=== PATIENT | female | born 1995 | race Caucasian/White ===

== ENCOUNTER → 2022-08-16 15:31 | Outpatient (BNVA) | payer OTHER, SELFPAY ==
--- NOTE | 2023-01-22 14:51 | W.PM.OPN ---
Operative Note Operative Note Date of Service: 01/02/23 Narrative: Patient was evaluated by Dr. Rogers for chronic lower back pain and radiculopathy with a foot drop and scheduled for ALIF L5-S1. I met with the patient pre-operatively and discussed the access part of the procedure and risks an the patient agreed to proceed. She was brought to the operating room and general anaesthesia was administered without incident. Abdomen was prepped sterily and draped. Timeout was done. Horizontal 6cm suprapubic incision was done . Rectus sheaths were opened horizontally and left rectus muscle was mobilized. Left inferior epigastric vessels were protected. Round ligament was transected between hemoclips ant retroperitoneal plane was developed , Left ureter was visualized and protected. Bookwalter retractor was placed with narrow blades. Dissection was carried at the medial aspect of the the left common iliac vein which was mobilized from the spine and middle sacral vessels were divided, Bipolar electrocautery was used to completely free L5-S1 disc anteriorly. Dissection was done close to the surface of the spine to prevent nerve injury. Midline was marked with X-ray imaging. Doctor Rogers then proceeded with diskectomy and cage fusion.Hemostasis was checked and was excellent. Gelfoam sponge was placed over the disc space. Ureter was intact and there was a good iliac pulse. Incision was injected with diluted Lidocaine/Marcaine mixture and closed by layers using O-Maxone on the fascia and absorbable subcutaneous and subcuticular closure. Exofin glue and steristrip was applied. EBL: less then 10ml Complication:none
== END ==
PROVIDERS: PCP Physician Assistant Medical; Visit Provider Neurological Surgery
DX: M47.27 Other spondylosis with radiculopathy, lumbosacral region (principal); Z79.891 Long term (current) use of opiate analgesic; Z79.899 Other long term (current) drug therapy
CPT/HCPCS: 99202

== ENCOUNTER → 2023-01-02 05:41 | Outpatient (BNV) | payer OTHER, SELFPAY | PROVIDERS: PCP Physician Assistant Medical; Visit Provider Neurological Surgery | DX: M47.27 Other spondylosis with radiculopathy, lumbosacral region (principal); Z48.89 Encounter for other specified surgical aftercare | CPT/HCPCS: 20930; 22558; 22845; 22853; 99024; 99499; G0180 ==

== ENCOUNTER 2023-01-02 09:54 | Inpatient (IN) | payer OTHER, SELFPAY ==
--- NOTE | 2022-12-20 | ECG_ITS ---
Test Reason : PRE-OP Blood Pressure : / mmHG Vent. Rate : 062 BPM Atrial Rate : 062 BPM P-R Int : 140 ms QRS Dur : 080 ms QT Int : 452 ms P-R-T Axes : 046 054 027 degrees QTc Int : 458 ms Normal sinus rhythm with sinus arrhythmia Cannot rule out Anterior infarct , age undetermined Abnormal ECG No previous ECGs available Referred By: Gabi Huertas Electronically Signed By:SALENA FERGUSON
[2022-12-20 12:25] VITALS: BP 102/57; PULSE 75; RESP 20; O2SAT 100; BMI 35.4
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
[2023-01-02] VITALS (18 sets, daily range): BP systolic 90–120; BP diastolic 44–74; PULSE 74–106; RESP 16–24; TEMP 36.1–36.8; O2SAT 96–99
--- NOTE | ~2023-01-02 | FL_ITS ---
EXAMINATION: XR FLUOROSCOPY WITH IMAGES CLINICAL INFORMATION: L5-S1 anterior lumbar interbody fusion. COMPARISON: None available. TECHNIQUE: Fluoroscopy Supervised By: Dr. Xavier Rogers. Fluoroscopy Time: 0.4 minutes. Cumulative Dose: 33.6 mGy. DAP: 3.58 Gycm2. Images: 2. FINDINGS: AP and lateral view demonstrates ACDF hardware at the L5-S1 level FL/FL guidance in OR IMPRESSION: Fluoroscopy guidance for ACDF at L5-S1
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
--- OUTSIDE RECORDS SUMMARY | 2023-01-02 05:47 | XMS_ITS | Continuity of Care Document ---
Author Name Unknown Organization [facility] Address [address] [place] [id number]- Care Team Providers Care Dowel Setting Machine Operator Name Role Phone Mary Melvin DO Primary Care Physician [phone] [place] [facility] [place]17[place] - 09/16/[address] [id number] Allergies, Adverse Reactions, Alerts Substance Reaction Severity Status predniSONE facial swelling Active Immunizations Given and Recorded Vaccine Date Status Refusal Reason [id number] 12y+ bivalent booster vax 07/28/22 Given SARS-CoV-2 mRNA ([id number]) vax 08/09/21 Given tetanus/diphtheria/pertussis, acel(Tdap) 06/08/21 Given [...] 12:02:00 EDT, Height, 82.9, kg, 02/09/22 7:58:00 Dr.. MEAGHAN. Start Date: 09/08/22 Status: Ordered clotrimazole 1% topical cream See Instructions, Topically 2 times a day to affected area of skin, # 60 Gm, 0 Refills, Maintenance, 09/07/22 17:39:00 EDT, [facility]/pharmacy #[id number], Partial fill upon patient request if the prescription is for a schedule II opioid drug., Topically 2 times... Start Date: 09/07/22 Status: Ordered Commode Commode, See Instructions, # 1 each, Refills 0, Tot. Refills 0, Maintenance, Dx: M54.30 Sciatica duration: assisted, 08/14/22 13:56:00 EDT, Supply Start Date: 08/14/22 Status: Ordered cyclobenzaprine 10 mg oral tablet 10 mg, 1, tablet, By Mouth, 3 times a day, PRN, for 14 days, # 42 tablet, Refills 0, Tot. Refills 0, Acute 09/21/22 15:34:00 EDT, for spasm, 09/07/22 15:34:00 EDT, Route to Pharmacy Electronically, [facility]/pharmacy #[id number], Partial fill upon patient request... Start Date: 09/07/22 Stop Date: 09/21/22 Status: Ordered gabapentin 100 mg oral capsule 100 mg, 1, capsule, By Mouth, Daily at bedtime, # 30 capsule, Refills 2, Tot. Refills 2, Maintenance, 06/20/22 9:46:00 EDT, Route to Pharmacy Electronically, [id number], dose decrease to 100mg qhs 06/20/22, 158, cm, 06/20/22 9:07:00 EDT, Height... Start Date: 06/20/22 Status: Ordered hydrocortisone 2.5% topical cream 1 application, Rectally, 2 times a day, PRN hemorrhoids, # 30 Gm, 11 Refills, Maintenance, 09/09/2315:53:00 EDT, Cream, [facility]/pharmacy #[id number], Partial fill upon patient request if the prescription is for a schedule II opioid drug., 1 application Rectall... Start Date: 09/08/22 Status: Ordered Lidoderm 5% film See Instructions, Topically Daily for pain remove patches after 12 hours, # 30 patch, 0 Refills, Maintenance, 08/10/22 17:46:00 EDT, [facility]/pharmacy #[id number], Partial fill upon patient request if the prescription is for a schedule II opioid drug., Topicall... Start Date: 08/10/22 Status: Ordered LSO for lower back pain LSO for lower back pain, See Instructions, # 1 each, Refills 0, Tot. Refills 0, Maintenance, pleasesize pt for LSO for lower back pain Fax to [facility]. [id number], 05/04/21 15:19:00 EST, Compound Start Date: 05/04/21 Status: Ordered meloxicam 15 mg oral tablet 1 tablet, By Mouth, Daily, # 30 tablet, 0 Refills, Maintenance, 08/10/22 9:19:00 EDT, [facility] STORE [id number], 158, cm, 08/04/22 14:26:00 EDT, Height, 82.9, kg, 02/09/22 7:58:00 EST, Dry Weight Start Date: 08/10/22 Status: Ordered ProAir HFA 90 mcg/inh inhalation aerosol with adapter 2, puffs, Inhalation, Every 4 hours, PRN, # 1 each, Refills 0, Tot. Refills 0, Maintenance, 03/11/18 16:52:13 EST, Aerosol, Route to Pharmacy Electronically, [id number], [facility]/pharmacy #[id number] Start Date: 03/11/18 Status: Ordered Seroquel By Mouth, Daily at [...] 1 Refills, Soft Stop, 02/13/22 10:40:00 EST, [id number], Partial fill upon patient request [...] EDT, Supply Start Date: 07/20/22 Status: Ordered walking cane walking cane, See [...] of autism (son) Confirmed Active *Debbie Munoz, Turret Lathe Operator, [facility] [phone] Confirmed Active GERD (gastroesophageal reflux disease) Confirmed [...] Team Personnel Name: Mary Melvin DO Position: S Resident Member Role: PCP Address: Address: [address] [facility] [place] [address]- Care Team Related Persons Name: FELICIA MOREAU Address: [address] [place] [address] Name: JENNIE YEE Address: home [address] [place] [address] [place] [address] Name: JON EDMONDS Address: [address] Address: [address] [place] [address] [place]
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
--- OUTSIDE RECORDS SUMMARY | 2023-01-02 05:47 | XMS_ITS | Continuity of Care Document ---
Author Name Unknown Organization [facility] Address [address] [place] [address]- Care Team Providers Care Fish And Wildlife Technician Name Role Phone Mary Melvin DO Primary Care Physician [facility] Date(s): 11/02/22 - 12/02/22 [facility] [address] [place] [address] Attending Physician: Giuliana Sommer Admitting Physician: AdmGiuliana arnold Referring Physician: Admtr, Ar8 Allergies, Adverse Reactions, Alerts Substance Reaction Severity Status predniSONE facial swelling Active Immunizations Given and Recorded Vaccine Date Status Refusal Reason [id number] 12y+ bivalent booster vax 07/28/22 Given SARS-CoV-2 mRNA (tbnnpbs-lgke-sygzj) vax 08/09/21 Given tetanus/diphtheria/pertussis, acel(Tdap) 06/08/21 Given [...] 12:02:00 EDT, Height, 82.9, kg, 02/09/22 7:58:00 EST, DrAyden. Start Date: 09/08/22 Status: Ordered Aspirin Low Dose 81 mg oral delayed release tablet See Instructions, TAKE 2 TABLETS BY MOUTH EVERY DAY TO HELP DECREASE PRE- ECLAMPSIA, # 30 tablet, 5 Refills, Maintenance, 11/07/22 18:27:00 EDT, [facility], 158, cm, 11/02/22 18:25:00 EDT, Height, 82.9, kg, 02/09/22 7:58:00 EST, Dry Weight Start Date: 11/07/22 Status: Ordered clotrimazole 1% topical cream See Instructions, Topically 2 times a day to affected area of skin, # 60 Gm, 3 Refills, Maintenance, 11/09/22 14:33:00 EDT, [facility]/pharmacy #[id number], Partial fill upon patient request if the prescription is for a schedule II opioid drug., Topically 2 times... Start Date: 11/09/22 Status: Ordered Commode Commode, See Instructions, # 1 each, Refills 0, Tot. Refills 0, Maintenance, Dx: M54.30 Sciatica duration: shelter, 08/14/22 13:56:00 EDT, Supply Start Date: 08/14/22 Status: Ordered gabapentin 100 mg oral capsule 100 mg, 1, capsule, By Mouth, Daily at bedtime, # 30 capsule, Refills 4, Tot. Refills 4, Maintenance, 11/09/22 14:33:00 EDT, Route to Pharmacy Electronically, [facility]/pharmacy #[id number], dose decrease to 100mg qhs 06/20/22, 158, cm, 11/02/22 18:25:00 EDT, [facility]... Start Date: 11/09/22 Status: Ordered hydrocortisone 2.5% topical cream 1 application, Rectally, 2 times a day, PRN hemorrhoids, # 30 Gm, 11 Refills, Maintenance, 09/09/2315:53:00 EDT, Cream, [facility]/pharmacy #[id number], Partial fill upon patient request if the prescription is for a schedule II opioid drug., 1 application Rectall... Start Date: 09/08/22 Status: Ordered Lidoderm 5% film See Instructions, Topically Daily for pain remove patches after 12 hours, # 30 patch, 0 Refills, Maintenance, 11/08/22 16:40:00 EDT, [facility]/pharmacy #[id number], Partial fill upon patient request if the prescription is for a schedule II opioid drug., Topicall... Start Date: 11/08/22 Status: Ordered LSO for lower back pain LSO for lower back pain, See Instructions, # 1 each, Refills 0, Tot. Refills 0, Maintenance, pleasesize pt for LSO for lower back pain Fax to [facility]. [id number], 05/04/21 15:19:00 EST, Compound Start Date: 05/04/21 Status: Ordered meloxicam 15 mg oral tablet See Instructions, 1 tablet daily for 14 days take with food please, # 14 each, 0 Refills, Maintenance, 11/02/22 19:13:00 EDT, [facility]/pharmacy #[id number], 158, cm, 11/02/22 18:25:00 EDT, Height, 82.9, kg, 02/09/22 7:58:00 EST, Dry Weight Start Date: 11/02/22 Status: Ordered Paxlovid 150 mg-100 mg oral tablet See Instructions, Paxlovid as mirmatrelvir 150 mg x 2 days with ritonavir 100. All 3 tablets taken together twice daily for 5 days, # 30 tablet, 0 Refills, Maintenance, 11/01/22 19:02:00 EDT, [facility]/pharmacy #[id number], Partial fill upon patient request if t... Start Date: 11/01/22 Status: Ordered ProAir HFA 90 mcg/inh inhalation aerosol with adapter 2, puffs, Inhalation, Every 4 hours, PRN, # 1 each, Refills 1, Tot. Refills 1, Maintenance, 11/01/22 19:03:00 EDT, Aerosol, Route to Pharmacy Electronically, [id number], [facility]/pharmacy #[id number], 158, cm, 10/04/22 9:25:00 EDT, [...] 1 Refills, Soft Stop, 02/13/22 10:40:00 EST, [facility]/pharmacy #[id number], Partial fill upon patient request [...] each, 11 Refills, Maintenance, 09/08/22 13:03:00 EDT, [facility]/pharmacy #[id number], Partial fill upon patient request if the [...] of autism (son) Confirmed Active *Debbie Munoz, Lead Manufacturing Technician, ICP [phone] Confirmed Active GERD (gastroesophageal reflux disease) Confirmed [...] in household: No entered on: 07/20/16 Sex Hospital Consult note * Event Display: Inpatient Consult Note, Non- Authored Date: * Event Display: Inpatient Consult Note, Non- Authored Date: Patient Care team information Care Team Personnel Name: Mary Melvin DO Position: [facility] Resident Member Role: PCP Address: Address: [address] [facility] [place], [place] [address] Care Team Related Persons Name: FELICIA MOREAU Address: home [address] [place] [address] Name: JENNIE YEE Address: home [address] [place] [address] Name: JON EDMONDS Address: [address] Address: [place] [address] [place] [address]
--- OUTSIDE RECORDS SUMMARY | 2023-01-02 05:47 | XMS_ITS | Continuity of Care Document ---
Author Name Unknown Organization [facility] Address [address] [place] [address] Dr [address] [place] [address]- Care Team Providers Care Gift Officer Name Role Phone Mary Melvin DO Primary Care Physician [facility]counter [facility] Date(s): 09/22/22 - 10/22/[address] [place], [place] [address] Attending Physician: AdmGiuliana arnold Admitting Physician: AdmtrGiuliana Referring Physician: Admtr, Ar8 Allergies, Adverse Reactions, Alerts Substance Reaction Severity Status predniSONE facial swelling Active Immunizations Given and Recorded Vaccine Date Status Refusal Reason [id number] 12y+ bivalent booster vax 07/28/22 Given SARS-CoV-2 mRNA (twuwvip-fett-klwgd) vax 08/09/21 Given tetanus/diphtheria/pertussis, acel(Tdap) 06/08/21 Given [...] cm, 09/08/22 12:02:00 EDT, Height, 82.9, kg, 11/10/22 7:58:00 Dr... MEAGHAN Start Date: 09/08/22 Status: Ordered clotrimazole 1% topical cream See Instructions, Topically 2 times a day to affected area of skin, # 60 Gm, 0 Refills, Maintenance, 09/07/22 17:39:00 EDT, [facility]/pharmacy #[id number], Partial fill upon patient request if the prescription is for a schedule II opioid drug., Topically 2 times... Start Date: 09/07/22 Status: Ordered Commode Commode, See Instructions, # 1 each, Refills 0, Tot. Refills 0, Maintenance, Dx: M54.30 Sciatica duration: long term, 08/14/22 13:56:00 EDT, Supply Start Date: 08/14/22 Status: Ordered gabapentin 100 mg oral capsule 100 mg, 1, capsule, By Mouth, Daily at bedtime, # 30 capsule, Refills 2, Tot. Refills 2, Maintenance, 06/20/22 9:46:00 EDT, Route to Pharmacy Electronically, [facility]/pharmacy #[id number], dose decrease to 100mg qhs 06/20/22, 158, cm, 06/20/22 9:07:00 EDT, Height... Start Date: 06/20/22 Status: Ordered hydrocortisone 2.5% topical cream 1 application, Rectally, 2 times a day, PRN hemorrhoids, # 30 Gm, 11 Refills, Maintenance, 09/09/2315:53:00 EDT, Cream, [facility]/pharmacy #[id number], Partial fill upon patient request if the prescription is for a schedule II opioid drug., 1 application Rectall... Start Date: 09/08/22 Status: Ordered Lidoderm 5% film See Instructions, Topically Daily for pain remove patches after 12 hours, # 30 patch, 0 Refills, Maintenance, 08/10/22 17:46:00 EDT, [facility]/pharmacy #[id number], Partial fill upon patient request if the prescription is for a schedule II opioid drug., Topicall... Start Date: 08/10/22 Status: Ordered LSO for lower back pain LSO for lower back pain, See Instructions, # 1 each, Refills 0, Tot. Refills 0, Maintenance, pleasesize pt for LSO for lower back pain Fax to [facility]. [id number], 05/04/21 15:19:00 EST, Compound Start Date: 05/04/21 Status: Ordered meloxicam 15 mg oral tablet See Instructions, TAKE 1 TABLET BY MOUTH EVERY DAY, # 30 tablet, 0 Refills, Maintenance, 10/05/22 15:40:00 EDT, [facility], 158, cm, 10/04/22 9:25:00 EDT, Height, 82.9, kg, 02/09/22 7:58:00 EST,Dry Weight Start Date: 10/05/22 Status: Ordered ProAir HFA 90 mcg/inh inhalation aerosol with adapter 2, puffs, Inhalation, Every 4 hours, PRN, # 1 each, Refills 0, Tot. Refills 0, Maintenance, 03/11/18 16:52:13 EST, Aerosol, Route to Pharmacy Electronically, [id number], [facility]/pharmacy #[id number] Start Date: 03/11/18 Status: Ordered Seroquel [...] 1 Refills, Soft Stop, 02/13/22 10:40:00 EST, [facility]/pharmacy #[id number], Partial fill upon patient request [...] each, 11 Refills, Maintenance, 09/08/22 13:03:00 EDT, [facility]/pharmacy #[id number], Partial fill upon patient request if the [...] of autism (son) Confirmed Active *Debbie Munoz, Digital Performance Analyst, [facility] [phone] Confirmed Active GERD (gastroesophageal reflux disease) Confirmed [...] Role: PCP Address: Address: [address] [facility] [place] [address]- Care Team Related Persons Name: FELICIA MOREAU Address: home [address] [place] [address] Name: JENNIE YEE Address: home [address] [place] [address] [place] [address] Name: JON EDMONDS Address: [address] Address: [address] [place] [address] [place]
--- OUTSIDE RECORDS SUMMARY | 2023-01-02 05:48 | XMS_ITS | Continuity of Care Document ---
Author Name Unknown Organization [facility] Address [address] [place] [address]- Care Team Providers Care Maintenance Manager Name Role Phone Mary Melvin DO Primary Care Physician [facility] Date[facility]s): 07/21/22 - 08/20/22 [facility] [address] [place] [address] Allergies, Adverse Reactions, Alerts Substance Reaction Severity Status predniSONE facial swelling Active Immunizations Given and Recorded Vaccine Date Status Refusal Reason [id number] 12y+ bivalent booster vax 07/28/22 Given SARS-CoV-2 mRNA (xsmnzgw-umrs-qytpp) vax 08/09/21 Given tetanus/diphtheria/pertussis, acel(Tdap) 06/08/21 Given [...] Refills 0, Maintenance, Dx: M54.30 Sciatica duration: [facility], 08/14/22 13:56:00 EDT, Supply Start Date: 08/14/22 Status: Ordered gabapentin 100 mg oral capsule 100 mg, 1, capsule, By Mouth, Daily at bedtime, # 30 capsule, Refills 2, Tot. Refills 2, Maintenance, 06/20/22 9:46:00 EDT, Route to Pharmacy Electronically, [facility]/pharmacy #[id number], dose decrease to 100mg qhs 06/20/22, 158, cm, 06/20/22 9:07:00 EDT, Height... Start Date: 06/20/22 Status: Ordered Lidoderm 5% film See Instructions, Topically Daily for pain remove patches after 12 hours, # 30 patch, 0 Refills, Maintenance, 08/10/22 17:46:00 EDT, [facility]/pharmacy #[id number], Partial fill upon patient request if the prescription is for a schedule II opioid drug., Topicall... Start Date: 08/10/22 Status: Ordered LSO for lower back pain LSO for lower back pain, See Instructions, # 1 each, Refills 0, Tot. Refills 0, Maintenance, pleasesize pt for LSO for lower back pain Fax to [facility]. [id number], 05/04/21 15:19:00 EST, Compound Start Date: 05/04/21 Status: Ordered meloxicam 15 mg oral tablet 1 tablet, By Mouth, Daily, # 30 tablet, 0 Refills, Maintenance, 08/10/22 9:19:00 EDT, [facility], 158, cm, 08/04/22 14:26:00 EDT, Height, 82.9, kg, 02/09/22 7:58:00 EST, Dry Weight Start Date: 08/10/22 Status: Ordered ProAir HFA 90 mcg/inh inhalation aerosol with adapter 2, puffs, Inhalation, Every 4 hours, PRN, # 1 each, Refills 0, Tot. Refills 0, Maintenance, 03/11/18 16:52:13 EST, Aerosol, Route to Pharmacy Electronically, [id number], [facility]/pharmacy #[id number] Start Date: 03/11/18 Status: Ordered [...] 1 Refills, Soft Stop, 02/13/22 10:40:00 EST, [facility]/pharmacy #[id number], Partial fill upon patient request if theprescription [...] of autism (son) Confirmed Active *Debbie Munoz, Snapper On, [facility] [phone] Confirmed Active GERD (gastroesophageal reflux disease) Confirmed [...] S Resident Member Role: PCP Address: Address: [address] [place] [address] [place] [address]- Care Team Related Persons Name: LIZZETH FELICIA Address: [address] [place] [address] Name: JENNIE YEE Address: home [address] [place] [address] [place] [address] Name: JON EDMONDS Address: [address] Address: [place] [address] [place] [address] [place]
--- OUTSIDE RECORDS SUMMARY | 2023-01-02 05:48 | XMS_ITS | Continuity of Care Document ---
Author Name Unknown Organization [facility] Address [address] [place] [address]- Care Team Providers Care Director Learning And Development Name Role Phone Mary Melvin DO Primary Care Physician Encounter [facility] Date(s): 09/08/22 - 10/08/22 [facility] [address] [address] Attending Physician: Giuliana Sommer Admitting Physician: AdmtrGiuliana Referring Physician: Admtr, ArGerardo Allergies, Adverse Reactions, Alerts Substance Reaction Severity Status predniSONE facial swelling Active Immunizations Given and Recorded Vaccine Date Status Refusal Reason [id number] 12y+ bivalent booster vax 07/28/22 Given SARS-CoV-2 mRNA (fasnadw-uirg-qqvgn) vax 08/09/21 Given tetanus/diphtheria/pertussis, acel(Tdap) 06/08/21 Given [...] Gm, 0 Refills, Maintenance, 09/07/22 17:39:00 EDT, [facility]/pharmacy #[id number], Partial fill upon patient request if the prescription is for a schedule II opioid drug., Topically 2 times... Start Date: 09/07/22 Status: Ordered Commode Commode, See Instructions, # 1 each, Refills 0, Tot. Refills 0, Maintenance, Dx: M54.30 Sciatica duration: senior living, 08/14/22 13:56:00 EDT, Supply Start Date: 08/14/22 Status: Ordered gabapentin 100 mg oral capsule 100 mg, 1, capsule, By Mouth, Daily at bedtime, # 30 capsule, Refills 2, Tot. Refills 2, Maintenance, 06/20/22 9:46:00 EDT, Route to Pharmacy Electronically, [facility]/pharmacy #[id number], dose decrease to 100mg qhs 06/20/22, 158, cm, 06/20/22 9:07:00 EDT, Height... Start Date: 06/20/22 Status: Ordered hydrocortisone 2.5% topical cream 1 application, Rectally, 2 times a day, PRN hemorrhoids, # 30 Gm, 11 Refills, Maintenance, 09/09/2315:53:00 EDT, Cream, [facility]/pharmacy #[id number], Partial fill upon patient request if the prescription is for a schedule II opioid drug., 1 application Rectall... Start Date: 09/08/22 Status: Ordered Lidoderm 5% film See Instructions, Topically Daily for pain remove patches after 12 hours, # 30 patch, 0 Refills, Maintenance, 08/10/22 17:46:00 EDT, [facility]/pharmacy #[id number], Partial fill upon patient request if the prescription is for a schedule II opioid drug., Topicall... Start Date: 08/10/22 Status: Ordered LSO for lower back pain LSO for lower back pain, See Instructions, # 1 each, Refills 0, Tot. Refills 0, Maintenance, pleasesize pt for LSO for lower back pain Fax to [facility]. [id number], 05/04/21 15:19:00 EST, Compound Start Date: 05/04/21 Status: Ordered meloxicam 15 mg oral tablet See Instructions, TAKE 1 TABLET BY MOUTH EVERY DAY, # 30 tablet, 0 Refills, Maintenance, 10/05/22 15:40:00 EDT, [facility], 158, cm, 10/04/22 9:25:00 EDT, Height, 82.9, kg, 02/09/22 7:58:00 EST,Dry Weight Start Date: 10/05/22 Status: Ordered ProAir HFA 90 mcg/inh inhalation aerosol with adapter 2, puffs, Inhalation, Every 4 hours, PRN, # 1 each, Refills 0, Tot. Refills 0, Maintenance, 03/11/18 16:52:13 EST, Aerosol, Route to Pharmacy Electronically, [id number], [facility]/pharmacy #[id number] Start Date: 03/11/18 Status: Ordered [...] 1 Refills, Soft Stop, 02/13/22 10:40:00 EST, [facility]/pharmacy #[id number], Partial fill upon patient request [...] each, 11 Refills, Maintenance, 09/08/22 13:03:00 EDT, [facility]/pharmacy #[id number], Partial fill upon patient request if the [...] of autism (son) Confirmed Active *Debbie Munoz, Nutritional Health Coach, [facility] [phone] Confirmed Active GERD (gastroesophageal reflux disease) Confirmed [...] in household: No entered on: 07/20/16 Sex US Neck * Event Display: Ultrasound Neck Authored Date: Patient Care team information Care Team Personnel Name: Mary Melvin DO Position: [facility] Resident Member Role: PCP Address: Address: [address] [facility] [place] [address]- Care Team Related Persons Name: FELICIA MOREAU Address: [address] [place] [address] Name: JENNIE YEE Address: home [address] FOR [facility] [place] [address] Name: JON EDMONDS Address: [address] Address: [address] [place] [address]
--- OUTSIDE RECORDS SUMMARY | 2023-01-02 05:48 | XMS_ITS | Continuity of Care Document ---
Author Name Unknown Organization [facility] Address [address] [place] [address]- Care Team Providers Care Phlebotomy Technologist Name Role Phone Mary Melvin DO Primary Care Physician [facility]): [facility] - 08/27/22 [facility] [address] [place] [id number] Attending Physician: Giuliana Sommer Admitting Physician: AdmtrGiuliana Referring Physician: AdmtrGiuliana Allergies, Adverse Reactions, Alerts Substance Reaction Severity Status predniSONE facial swelling Active Immunizations Given and Recorded Vaccine Date Status Refusal Reason [id number] 12y+ bivalent booster vax 07/28/22 Given SARS-CoV-2 mRNA ([id number]-nwmp-hlpzn) vax 08/09/21 Given tetanus/diphtheria/pertussis, acel(Tdap) 06/08/21 Given [...] 06/20/22 9:46:00 EDT, Route to Pharmacy Electronically, [facility]/pharmacy #[id number], dose decrease to 100mg qhs 06/20/22, 158, cm, 06/20/22 9:07:00 EDT, Height... Start Date: 06/20/22 Status: Ordered Lidoderm 5% film See Instructions, Topically Daily for pain remove patches after 12 hours, # 30 patch, 0 Refills, Maintenance, 08/10/22 17:46:00 EDT, [facility]/pharmacy #[id number], Partial fill upon patient request if the prescription is for a schedule II opioid drug., Topicall... Start Date: 08/10/22 Status: Ordered LSO for lower back pain LSO for lower back pain, See Instructions, # 1 each, Refills 0, Tot. Refills 0, Maintenance, pleasesize pt for LSO for lower back pain Fax to [facility]. [id number], 05/04/21 15:19:00 EST, Compound Start Date: 05/04/21 Status: Ordered meloxicam 15 mg oral tablet 1 tablet, By Mouth, Daily, # 30 tablet, 0 Refills, Maintenance, 08/10/22 9:19:00 EDT, [facility] STORE [id number], 158, cm, 08/04/22 14:26:00 EDT, Height, 82.9, kg, 02/09/22 7:58:00 EST, Dry Weight Start Date: 08/10/22 Status: Ordered ProAir HFA 90 mcg/inh inhalation aerosol with adapter 2, puffs, Inhalation, Every 4 hours, PRN, # 1 each, Refills 0, Tot. Refills 0, Maintenance, 03/11/18 16:52:13 EST, Aerosol, Route to Pharmacy Electronically, [id number], [facility]/pharmacy #[id number] Start Date: 03/11/18 Status: Ordered [...] 1 Refills, Soft Stop, 02/13/22 10:40:00 EST, [facility]/pharmacy #[id number], Partial fill upon patient request if theprescription [...] of autism (son) Confirmed Active *Debbie Munoz, Middle School Combination Teacher, [facility] [phone] Confirmed Active GERD (gastroesophageal reflux disease) Confirmed [...] note * Event Display: Inpatient Consult Note, Non-BH Authored Date: * Event Display: Inpatient Consult Note, Non- Authored Date: Patient Care team information Care Team Personnel Name: Mary Melvin DO Position: S Resident Member Role: PCP Address: Address: [address] [place] [address] [place] [address]- Care Team Related Persons Name: FELICIA MOREAU Address: home [address] [place] [address] Name: JENNIE YEE Address: home [address] [place] [address] Name: JON EDMONDS Address: [address] Address: [address] [place] [address]
--- OUTSIDE RECORDS SUMMARY | 2023-01-02 05:48 | XMS_ITS | Continuity of Care Document ---
Author Name Unknown Organization [facility] Address [address] [place] [address]- Care Team Providers Care Accountant Assistant Name Role Phone Mary Melvin DO Primary Care Physician [facility] 10[facility]22 - 12/02/22 [facility] [address] [place] [id number] Attending Physician: Not on Staff, Attending MD Allergies, Adverse Reactions, Alerts Substance Reaction Severity Status predniSONE facial swelling Active Immunizations Given and Recorded Vaccine Date Status Refusal Reason [id number] 12y+ bivalent booster vax 07/28/22 Given SARS-CoV-2 mRNA (ieceibm-kwfc-vjuxy) vax 08/09/21 Given tetanus/diphtheria/pertussis, acel(Tdap) 06/08/21 Given [...] Dr. MEAGHAN.. Start Date: 09/08/22 Status: Ordered Aspirin Low Dose 81 mg oral delayed release tablet See Instructions, TAKE 2 TABLETS BY MOUTH EVERY DAY TO HELP DECREASE PRE- ECLAMPSIA, # 30 tablet, 5 Refills, Maintenance, 11/07/22 18:27:00 EDT, [facility] STORE 51327, 158, cm, 11/02/22 18:25:00 EDT, Height, 82.9, kg, 02/09/22 7:58:00 EST, Dry Weight Start Date: 11/07/22 Status: Ordered clotrimazole 1% topical cream See Instructions, Topically 2 times a day to affected area of skin, # 60 Gm, 3 Refills, Maintenance, 11/09/22 14:33:00 EDT, [facility]/pharmacy #[id number], Partial fill upon patient request [...] 11/09/22 14:33:00 EDT, Route to Pharmacy Electronically, [facility]/pharmacy #[id number], dose decrease to 100mg qhs 06/20/22, 158, cm, 11/02/22 18:25:00 EDT, [facility] Start Date: 11/09/22 Status: Ordered hydrocortisone 2.5% topical cream 1 application, Rectally, 2 times a day, PRN hemorrhoids, # 30 Gm, 11 Refills, Maintenance, 09/09/2315:53:00 EDT, Cream, [facility]/pharmacy #[id number], Partial fill upon patient request if the prescription is for a schedule II opioid drug., 1 application Rectall... Start Date: 09/08/22 Status: Ordered Lidoderm 5% film See Instructions, Topically Daily for pain remove patches after 12 hours, # 30 patch, 0 Refills, Maintenance, 11/08/22 16:40:00 EDT, [facility]/pharmacy #[id number], Partial fill upon patient request if the prescription is for a schedule II opioid drug., Topicall... Start Date: 11/08/22 Status: Ordered LSO for lower back pain LSO for lower back pain, See Instructions, # 1 each, Refills 0, Tot. Refills 0, Maintenance, pleasesize pt for LSO for lower back pain Fax to [facility]. [id number], 05/04/21 15:19:00 EST, Compound Start Date: 05/04/21 Status: Ordered meloxicam 15 mg oral tablet See Instructions, 1 tablet daily for 14 days take with food please, # 14 each, 0 Refills, Maintenance, 11/02/22 19:13:00 EDT, [facility]/pharmacy #[id number], 158, cm, 11/02/22 18:25:00 EDT, Height, 82.9, kg, 02/09/22 7:58:00 EST, Dry Weight Start Date: 11/02/22 Status: Ordered Paxlovid 150 mg-100 mg oral tablet See Instructions, Paxlovid as mirmatrelvir 150 mg x 2 days with ritonavir 100. All 3 tablets taken together twice daily for 5 days, # 30 tablet, 0 Refills, Maintenance, 11/01/22 19:02:00 EDT, [facility]/pharmacy #[id number], Partial fill upon patient request if t... Start Date: 11/01/22 Status: Ordered ProAir HFA 90 mcg/inh inhalation aerosol with adapter 2, puffs, Inhalation, Every 4 hours, PRN, # 1 each, Refills 1, Tot. Refills 1, Maintenance, 11/01/22 19:03:00 EDT, Aerosol, Route to Pharmacy Electronically, [id number], [facility]/pharmacy #[id number], 158, cm, 10/04/22 9:25:00 EDT, [...] 1 Refills, Soft Stop, 02/13/22 10:40:00 EST, [facility]/pharmacy #[id number], Partial fill upon patient request if theprescription [...] 11 Refills, Maintenance, 09/08/22 13:03:00 EDT, [id number], Partial fill upon patient request if the [...] of autism (son) Confirmed Active *Debbie Munoz, Property Field Adjuster, [facility] [phone] Confirmed Active GERD (gastroesophageal reflux disease) Confirmed [...] Team Personnel Name: Mary Melvin DO Position: [facility] Resident Member Role: PCP Address: Address: [address] [facility] [place] [address]- Care Team Related Persons Name: FELICIA MOREAU Address: home [address] [place] [address] Name: JENNIE YEE Address: home [address] [place] [address] Name: JON EDMONDS Address: [address] Address: [address] [place] [address] [place]
--- OUTSIDE RECORDS SUMMARY | 2023-01-02 05:48 | XMS_ITS | Continuity of Care Document ---
Author Name Unknown Organization [facility] Address [address] [place] [address]- Care Team Providers Care Special Needs Bus Driver Name Role Phone Mary Melvin DO Primary Care Physician [facility] 10[facility]22 - 11/05/22 [facility] [address] [place] [id number] Allergies, Adverse Reactions, Alerts Substance Reaction Severity Status predniSONE facial swelling Active Immunizations Given and Recorded Vaccine Date Status Refusal Reason [id number] 12y+ bivalent booster vax 07/28/22 Given SARS-CoV-2 mRNA (jqgpoaf-pwhd-fwjrs) vax 08/09/21 Given tetanus/diphtheria/pertussis, acel(Tdap) 06/08/21 Given [...] Gm, 0 Refills, Maintenance, 09/07/22 17:39:00 EDT, [facility]/pharmacy #[id number], Partial fill upon patient request if the prescription is for a schedule II opioid drug., Topically 2 times... Start Date: 09/07/22 Status: Ordered Commode Commode, See Instructions, # 1 each, Refills 0, Tot. Refills 0, Maintenance, Dx: M54.30 Sciatica duration: mcc, 08/14/22 13:56:00 EDT, Supply Start Date: 08/14/22 Status: Ordered gabapentin 100 mg oral capsule 100 mg, 1, capsule, By Mouth, Daily at bedtime, # 30 capsule, Refills 2, Tot. Refills 2, Maintenance, 06/20/22 9:46:00 EDT, [id number], dose decrease to 100mg qhs 06/20/22, 158, cm, 06/20/22 9:07:00 EDT, Height... Start Date: 06/20/22 Status: Ordered hydrocortisone 2.5% topical cream 1 application, Rectally, 2 times a day, PRN hemorrhoids, # 30 Gm, 11 Refills, Maintenance, 09/09/2315:53:00 EDT, Cream, [facility]/pharmacy #[id number], Partial fill upon patient request if the prescription is for a schedule II opioid drug., 1 application Rectall... Start Date: 09/08/22 Status: Ordered Lidoderm 5% film See Instructions, Topically Daily for pain remove patches after 12 hours, # 30 patch, 0 Refills, Maintenance, 08/10/22 17:46:00 EDT, [facility]/pharmacy #[id number], Partial fill upon patient request if the prescription is for a schedule II opioid drug., Topicall... Start Date: 08/10/22 Status: Ordered LSO for lower back pain LSO for lower back pain, See Instructions, # 1 each, Refills 0, Tot. Refills 0, Maintenance, pleasesize pt for LSO for lower back pain Fax to [facility]. [id number], 05/04/21 15:19:00 EST, Compound Start Date: 05/04/21 Status: Ordered meloxicam 15 mg oral tablet See Instructions, 1 tablet daily for 14 days take with food please, # 14 each, 0 Refills, Maintenance, 11/02/22 19:13:00 EDT, [facility]/pharmacy #[id number], 158, cm, 11/02/22 18:25:00 EDT, Height, 82.9, kg, 02/09/22 7:58:00 EST, Dry Weight Start Date: 11/02/22 Status: Ordered Paxlovid 150 mg-100 mg oral tablet See Instructions, Paxlovid as mirmatrelvir 150 mg x 2 days with ritonavir 100. All 3 tablets taken together twice daily for 5 days, # 30 tablet, 0 Refills, Maintenance, 11/01/22 19:02:00 EDT, [facility]/pharmacy #[id number], Partial fill upon patient request if t... Start Date: 11/01/22 Status: Ordered ProAir HFA 90 mcg/inh inhalation aerosol with adapter 2, puffs, Inhalation, Every 4 hours, PRN, # 1 each, Refills 1, Tot. Refills 1, Maintenance, 11/01/22 19:03:00 EDT, Aerosol, Route to Pharmacy Electronically, [id number], [facility]/pharmacy #[id number], 158, cm, 10/04/22 9:25:00 EDT, Heig... [...] of autism (son) Confirmed Active *Debbie Munoz, Fountain Dispenser, [facility] [phone] Confirmed Active GERD (gastroesophageal reflux disease) Confirmed [...] Team Personnel Name: Mary Melvin DO Position: [facility] Resident Member Role: PCP Address: Address: [address] [facility] [place] [address]- Care Team Related Persons Name: FELICIA MOREAU Address: home [address] [place] [address] Name: JENNIE YEE Address: home [address] [place] [address] [place] [address] Name: JON EDMONDS Address: [address] Address: [address] [place] [address]
--- OUTSIDE RECORDS SUMMARY | 2023-01-02 05:48 | XMS_ITS | Continuity of Care Document ---
Author Name Unknown Organization [facility] Address [address] [place] [address]- Care Team Providers Care Cage Maker Name Role Phone Mary Melvin DO Primary Care Physician [phone] [facility]s): 07/19/22 - 08/18/22 [facility] [address] [place] [id number] Allergies, Adverse Reactions, Alerts Substance Reaction Severity Status predniSONE facial swelling Active Immunizations Given and Recorded Vaccine Date Status Refusal Reason [id number] 12y+ bivalent booster vax 07/28/22 Given SARS-CoV-2 mRNA (redodsv-tlhd-xngxj) vax 08/09/21 Given tetanus/diphtheria/pertussis, acel(Tdap) 06/08/21 Given [...] Refills 0, Maintenance, Dx: M54.30 Sciatica duration: usp, 08/14/22 13:56:00 EDT, Supply Start Date: 08/14/22 Status: Ordered gabapentin 100 mg oral capsule 100 mg, 1, capsule, By Mouth, Daily at bedtime, # 30 capsule, Refills 2, Tot. Refills 2, Maintenance, 06/20/22 9:46:00 EDT, Route to Pharmacy Electronically, [facility]/pharmacy #[id number], dose decrease to 100mg qhs 06/20/22, 158, cm, 06/20/22 9:07:00 EDT, Height... Start Date: 06/20/22 Status: Ordered Lidoderm 5% film See Instructions, Topically Daily for pain remove patches after 12 hours, # 30 patch, 0 Refills, Maintenance, 08/10/22 17:46:00 EDT, [facility]/pharmacy #[id number], Partial fill upon patient request if the prescription is for a schedule II opioid drug., Topicall... Start Date: 08/10/22 Status: Ordered LSO for lower back pain LSO for lower back pain, See Instructions, # 1 each, Refills 0, Tot. Refills 0, Maintenance, pleasesize pt for LSO for lower back pain Fax to [facility]. [id number], 05/04/21 15:19:00 EST, Compound Start Date: 05/04/21 Status: Ordered meloxicam 15 mg oral tablet 1 tablet, By Mouth, Daily, # 30 tablet, 0 Refills, Maintenance, 08/10/22 9:19:00 EDT, [facility] STORE 13305, 158, cm, 08/04/22 14:26:00 EDT, Height, 82.9, kg, 02/09/22 7:58:00 EST, Dry Weight Start Date: 08/10/22 Status: Ordered ProAir HFA 90 mcg/inh inhalation aerosol with adapter 2, puffs, Inhalation, Every 4 hours, PRN, # 1 each, Refills 0, Tot. Refills 0, Maintenance, 03/11/18 16:52:13 EST, Aerosol, Route to Pharmacy Electronically, [id number], [facility]/pharmacy #[id number] Start Date: 03/11/18 Status: [...] 1 Refills, Soft Stop, 02/13/22 10:40:00 EST, [facility]/pharmacy #[id number], Partial fill upon patient request if theprescription [...] Family history of autism (son) Confirmed Active *Debibe Munoz, Brine Supervisor, [facility] [phone] Confirmed Active GERD (gastroesophageal reflux disease) Confirmed [...] S Resident Member Role: PCP Address: Address: [address] [place] [address] [place] [address]- [place] Care Team Related Persons Name: LIZZETH FELICIA Address: [address] [facility] [place] [address] Name: JENNIE YEE Address: home [address] [facility] [place] [address] Name: JON EDMONDS Address: [address] Address: [address] [place] [address] [place]
--- OUTSIDE RECORDS SUMMARY | 2023-01-02 05:48 | XMS_ITS | Continuity of Care Document ---
Author Name Unknown Organization [facility] Address [address] [place] [address]- Care Team Providers Care Brim Curler Name Role Phone Mary Melvin DO Primary Care Physician [facility]): 10[facility]05/22 - 11/04/22 [facility] [address] [place] [id number] Allergies, Adverse Reactions, Alerts Substance Reaction Severity Status predniSONE facial swelling Active Immunizations Given and Recorded Vaccine Date Status Refusal Reason [id number] 12y+ bivalent booster vax 07/28/22 Given SARS-CoV-2 mRNA (nhtaplq-qhvt-weewp) vax 08/09/21 Given tetanus/diphtheria/pertussis, acel(Tdap) 06/08/21 Given [...] Gm, 0 Refills, Maintenance, 09/07/22 17:39:00 EDT, [facility]/pharmacy #[id number], Partial fill upon patient request if the prescription is for a schedule II opioid drug., Topically 2 times... Start Date: 09/07/22 Status: Ordered Commode Commode, See Instructions, # 1 each, Refills 0, Tot. Refills 0, Maintenance, Dx: M54.30 Sciatica duration: care home, 08/14/22 13:56:00 EDT, Supply Start Date: 08/14/22 Status: Ordered gabapentin 100 mg oral capsule 100 mg, 1, capsule, By Mouth, Daily at bedtime, # 30 capsule, Refills 2, Tot. Refills 2, Maintenance, 06/20/22 9:46:00 EDT, [id number], dose decrease to 100mg qhs 06/20/22, 158, cm, 06/20/22 9:07:00 EDT, Height... Start Date: 06/20/22 Status: Ordered hydrocortisone 2.5% topical cream 1 application, Rectally, 2 times a day, PRN hemorrhoids, # 30 Gm, 11 Refills, Maintenance, 09/09/2315:53:00 EDT, Cream, [facility]/pharmacy #[id number], Partial fill upon patient request if the prescription is for a schedule II opioid drug., 1 application Rectall... Start Date: 09/08/22 Status: Ordered Lidoderm 5% film See Instructions, Topically Daily for pain remove patches after 12 hours, # 30 patch, 0 Refills, Maintenance, 08/10/22 17:46:00 EDT, [facility]/pharmacy #[id number], Partial fill upon patient request if the prescription is for a schedule II opioid drug., Topicall... Start Date: 08/10/22 Status: Ordered LSO for lower back pain LSO for lower back pain, See Instructions, # 1 each, Refills 0, Tot. Refills 0, Maintenance, pleasesize pt for LSO for lower back pain Fax to [facility]. [id number], 05/04/21 15:19:00 EST, Compound Start Date: 05/04/21 Status: Ordered meloxicam 15 mg oral tablet See Instructions, 1 tablet daily for 14 days take with food please, # 14 each, 0 Refills, Maintenance, 11/02/22 19:13:00 EDT, [facility]/pharmacy #[id number], 158, cm, 11/02/22 18:25:00 EDT, Height, 82.9, kg, 02/09/22 7:58:00 EST, Dry Weight Start Date: 11/02/22 Status: Ordered Paxlovid 150 mg-100 mg oral tablet See Instructions, Paxlovid as mirmatrelvir 150 mg x 2 days with ritonavir 100. All 3 tablets taken together twice daily for 5 days, # 30 tablet, 0 Refills, Maintenance, 11/01/22 19:02:00 EDT, [facility]/pharmacy #[id number], Partial fill upon patient request if t... Start Date: 11/01/22 Status: Ordered ProAir HFA 90 mcg/inh inhalation aerosol with adapter 2, puffs, Inhalation, Every 4 hours, PRN, # 1 each, Refills 1, Tot. Refills 1, Maintenance, 11/01/22 19:03:00 EDT, Aerosol, Route to Pharmacy Electronically, [id number], [facility]/pharmacy #[id number], 158, cm, 10/04/22 9:25:00 EDT, Heig... [...] of autism (son) Confirmed Active *Debbie Munoz, Leather Sorter, [facility] [phone] Confirmed Active GERD (gastroesophageal reflux disease) Confirmed [...] Member Role: PCP Address: Address: [address] [facility] [place] [address]- Care Team Related Persons Name: FELICIA MOREAU Address: home [address] [place] [address] Name: JENNIE YEE Address: home [address] [place] [address] Name: JON EDMONDS Address: [address] Address: [address] [place] [address]
--- OUTSIDE RECORDS SUMMARY | 2023-01-02 05:49 | XMS_ITS | Continuity of Care Document ---
Author Name Unknown Organization [facility] Address [address] [place] [address]- Care Team Providers Care Information Engineer Name Role Phone Mary Melvin DO Primary Care Physician [phone] Encounter [facility] Date(s): 08/04/22 - 10/08/22 [facility] [address] [address] Attending Physician: Not on Staff, Attending MD Referring Physician: Madhuri Lowery CNM Allergies, Adverse Reactions, Alerts Substance Reaction Severity Status predniSONE facial swelling Active Immunizations Given and Recorded Vaccine Date Status Refusal Reason [id number] 12y+ bivalent booster vax 07/28/22 Given SARS-CoV-2 mRNA (htqbujn-ofpd-fyrre) vax 08/09/21 Given tetanus/diphtheria/pertussis, acel(Tdap) 06/08/21 Given [...] Vaccine 1 07/08/07 Given Influenza Vaccine (oldterm) 9/21/09 Given Tet/Diphth/Acel, Pertussis (oldterm) 2 07/08/07 Gi [...] 12:02:00 EDT, Height, 82.9, kg, 02/09/22 7:58:00 Dr... MEAGHAN Start Date: 09/08/22 Status: Ordered clotrimazole 1% topical cream See Instructions, Topically 2 times a day to affected area of skin, # 60 Gm, 0 Refills, Maintenance, 09/07/22 17:39:00 EDT, [facility]/pharmacy #[id number], Partial fill upon patient request if the prescription is for a schedule II opioid drug., Topically 2 times... Start Date: 09/07/22 Status: Ordered Commode Commode, See Instructions, # 1 each, Refills 0, Tot. Refills 0, Maintenance, Dx: M54.30 Sciatica duration: prison, 08/14/22 13:56:00 EDT, Supply Start Date: 08/14/22 Status: Ordered gabapentin 100 mg oral capsule 100 mg, 1, capsule, By Mouth, Daily at bedtime, # 30 capsule, Refills 2, Tot. Refills 2, Maintenance, 06/20/22 9:46:00 EDT, Route to Pharmacy Electronically, [facility]/pharmacy #[id number], dose decrease to 100mg qhs 06/20/22, 158, cm, 06/20/22 9:07:00 EDT, Height... Start Date: 06/20/22 Status: Ordered hydrocortisone 2.5% topical cream 1 application, Rectally, 2 times a day, PRN hemorrhoids, # 30 Gm, 11 Refills, Maintenance, 09/09/2315:53:00 EDT, Cream, [facility]/pharmacy #[id number], Partial fill upon patient request if the prescription is for a schedule II opioid drug., 1 application Rectall... Start Date: 09/08/22 Status: Ordered Lidoderm 5% film See Instructions, Topically Daily for pain remove patches after 12 hours, # 30 patch, 0 Refills, Maintenance, 08/10/22 17:46:00 EDT, [facility]/pharmacy #[id number], Partial fill upon patient request if the prescription is for a schedule II opioid drug., Topicall... Start Date: 08/10/22 Status: Ordered LSO for lower back pain LSO for lower back pain, See Instructions, # 1 each, Refills 0, Tot. Refills 0, Maintenance, pleasesize pt for LSO for lower back pain Fax to [facility]. [id number], 05/04/21 15:19:00 EST, Compound Start Date: 05/04/21 Status: Ordered meloxicam 15 mg oral tablet See Instructions, TAKE 1 TABLET BY MOUTH EVERY DAY, # 30 tablet, 0 Refills, Maintenance, 10/05/22 15:40:00 EDT, [id number], 158, cm, 10/04/22 9:25:00 EDT, Height, 82.9, kg, 02/09/22 7:58:00 EST,Dry Weight Start Date: 10/05/22 Status: Ordered ProAir HFA 90 mcg/inh inhalation aerosol with adapter 2, puffs, Inhalation, Every 4 hours, PRN, # 1 each, Refills 0, Tot. Refills 0, Maintenance, 03/11/18 16:52:13 EST, Aerosol, Route to Pharmacy Electronically, [id number], [facility]/pharmacy #[id number] Start Date: 03/11/18 Status: Ordered Seroquel [...] each, 11 Refills, Maintenance, 09/08/22 13:03:00 EDT, [facility]/pharmacy #[id number], Partial fill upon patient request if the [...] of autism (son) Confirmed Active *Debbie Munoz, [employer], [facility] [phone] Confirmed Active GERD (gastroesophageal reflux disease) Confirmed [...] Role: PCP Address: Address: [address] [facility] [place], [place] [address] Care Team Related Persons Name: FELICIA MOREAU Address: home [address] [place] [address] Name: JENNIE YEE Address: home [address] [place] [address] [place] [address] Name: JON EDMONDS Address: [address] Address: [address] [place] [address] [place]
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
--- OUTSIDE RECORDS SUMMARY | 2023-01-02 05:49 | XMS_ITS | Continuity of Care Document ---
Author Name Unknown Organization [facility] Address [address] [place] [address] ve [address] [place] [address]- Care Team Providers Care Performance Improvement Consultant Name Role Phone Mary Melvin DO Primary Care Physician [place] [facility] [place]): [place] 10[place]22/22 [facility] [address] [place], [place] [address] Attending Physician: Juliette CABRERA, Michelle Benito Referring Physician: Katy Velasco MD Allergies, Adverse Reactions, Alerts Substance Reaction Severity Status predniSONE facial swelling Active Immunizations Given and Recorded Vaccine Date Status Refusal Reason [id number] 12y+ bivalent booster vax 07/28/22 Given SARS-CoV-2 mRNA ([id number]) vax 08/09/21 Given tetanus/diphtheria/pertussis, acel(Tdap) 06/08/21 Given [...] 12:02:00 EDT, Height, 82.9, kg, 02/09/22 7:58:00 ESTDr... Start Date: 09/08/22 Status: Ordered clotrimazole 1% topical cream See Instructions, Topically 2 times a day to affected area of skin, # 60 Gm, 0 Refills, Maintenance, 09/07/22 17:39:00 EDT, [facility]/pharmacy #[id number], Partial fill upon patient request [...] EDT, Route to Pharmacy Electronically, [facility]/pharmacy #[id number], dose decrease to 100mg qhs 06/20/22, 158, cm, 06/20/22 9:07:00 EDT, Height... Start Date: 06/20/22 Status: Ordered hydrocortisone 2.5% topical cream 1 application, Rectally, 2 times a day, PRN hemorrhoids, # 30 Gm, 11 Refills, Maintenance, 09/09/2315:53:00 EDT, Cream, [facility]/pharmacy #[id number], Partial fill upon patient request if the prescription is for a schedule II opioid drug., 1 application Rectall... Start Date: 09/08/22 Status: Ordered Lidoderm 5% film See Instructions, Topically Daily for pain remove patches after 12 hours, # 30 patch, 0 Refills, Maintenance, 08/10/22 17:46:00 EDT, [facility]/pharmacy #[id number], Partial fill upon patient request if the prescription is for a schedule II opioid drug., Topicall... Start Date: 08/10/22 Status: Ordered LSO for lower back pain LSO for lower back pain, See Instructions, # 1 each, Refills 0, Tot. Refills 0, Maintenance, pleasesize pt for LSO for lower back pain Fax to [facility]. [id number], 05/04/21 15:19:00 EST, Compound Start Date: 05/04/21 Status: Ordered meloxicam 15 mg oral tablet See Instructions, TAKE 1 TABLET BY MOUTH EVERY DAY, # 30 tablet, 0 Refills, Maintenance, 10/05/22 15:40:00 EDT, [id number], 158, cm, 10/04/22 9:25:00 EDT, Height, 82.9, kg, 02/09/22 7:58:00 EST,Dry Weight Start Date: 10/05/22 Status: Ordered ProAir HFA 90 mcg/inh inhalation aerosol with adapter 2, puffs, Inhalation, Every 4 hours, PRN, # 1 each, Refills 0, Tot. Refills 0, Maintenance, 03/11/18 16:52:13 EST, Aerosol, Route to Pharmacy Electronically, [id number], [facility]/pharmacy #[id number] Start Date: 03/11/18 Status: Ordered [...] Soft Stop, 02/13/22 10:40:00 EST, [facility]/pharmacy #[id number], Partial fill upon patient request [...] Refills, Maintenance, 09/08/22 13:03:00 EDT, [facility]/pharmacy #[id number], Partial fill upon patient request if the [...] of autism (son) Confirmed Active *Debbie Munoz, Outdoor Education Teacher, [facility] [phone] Confirmed Active GERD (gastroesophageal reflux disease) Confirmed [...] Resident Member Role: PCP Address: Address: [address] [facility] [place] [address]- Care Team Related Persons Name: FELICIA MOREAU Address: home [address] [place] [address] Name: JENNIE YEE Address: home [address] [place] [address] [place] [address] Name: JON EDMONDS Address: [id number] Address: [address] [place] [address] [place]
--- OUTSIDE RECORDS SUMMARY | 2023-01-02 05:49 | XMS_ITS | Continuity of Care Document ---
Author Name Unknown Organization [facility] Address [address] [place] [address]- Care Team Providers Care Report Specialist Name Role Phone Mary Melvin DO Primary Care Physician Encounter [facility] Date(s): 10/20/22 - 11/19/22 [facility] [address] [place] [id number] Allergies, Adverse Reactions, Alerts Substance Reaction Severity Status predniSONE facial swelling Active Immunizations Given and Recorded Vaccine Date Status Refusal Reason [id number] 12y+ bivalent booster vax 07/28/22 Given SARS-CoV-2 mRNA ([id number]) vax 08/09/21 Given tetanus/diphtheria/pertussis, acel(Tdap) 06/08/21 Given [...] EDT, Height, 82.9, kg, 02/09/22 7:58:00 EST, Dr... Start Date: 09/08/22 Status: Ordered Aspirin Low Dose 81 mg oral delayed release tablet See Instructions, TAKE 2 TABLETS BY MOUTH EVERY DAY TO HELP DECREASE PRE- ECLAMPSIA, # 30 tablet, 5 Refills, Maintenance, 11/07/22 18:27:00 EDT, [id number], 158, cm, 11/02/22 18:25:00 EDT, Height, 82.9, kg, 02/09/22 7:58:00 EST, Dry Weight Start Date: 11/07/22 Status: Ordered clotrimazole 1% topical cream See Instructions, Topically 2 times a day to affected area of skin, # 60 Gm, 3 Refills, Maintenance, 11/09/22 14:33:00 EDT, [facility]/pharmacy #[id number], Partial fill upon patient request if the prescription is for a schedule II opioid drug., Topically 2 times... Start Date: 11/09/22 Status: Ordered Commode Commode, See Instructions, # 1 each, Refills 0, Tot. Refills 0, Maintenance, Dx: M54.30 Sciatica duration: alf, 08/14/22 13:56:00 EDT, Supply Start Date: 08/14/22 Status: Ordered gabapentin 100 mg oral capsule 100 mg, 1, capsule, By Mouth, Daily at bedtime, # 30 capsule, Refills 4, Tot. Refills 4, Maintenance, 11/09/22 14:33:00 EDT, Route to Pharmacy Electronically, [facility]/pharmacy #[id number], dose decrease to 100mg qhs 06/20/22, 158, cm, 11/02/22 18:25:00 EDT, [facility]... Start Date: 11/09/22 Status: Ordered hydrocortisone 2.5% topical cream 1 application, Rectally, 2 times a day, PRN hemorrhoids, # 30 Gm, 11 Refills, Maintenance, 09/09/2315:53:00 EDT, Cream, [facility]/pharmacy #[id number], Partial fill upon patient request if the prescription is for a schedule II opioid drug., 1 application Rectall... Start Date: 09/08/22 Status: Ordered Lidoderm 5% film See Instructions, Topically Daily for pain remove patches after 12 hours, # 30 patch, 0 Refills, Maintenance, 11/08/22 16:40:00 EDT, [facility]/pharmacy #[id number], Partial fill upon patient request if the prescription is for a schedule II opioid drug., Topicall... Start Date: 11/08/22 Status: Ordered LSO for lower back pain LSO for lower back pain, See Instructions, # 1 each, Refills 0, Tot. Refills 0, Maintenance, pleasesize pt for LSO for lower back pain [facility] to [facility]. [id number], 05/04/21 15:19:00 EST, Compound Start Date: 05/04/21 Status: Ordered meloxicam 15 mg oral tablet See Instructions, 1 tablet daily for 14 days take with food please, # 14 each, 0 Refills, Maintenance, 11/02/22 19:13:00 EDT, [facility]/pharmacy #[id number], 158, cm, 11/02/22 18:25:00 EDT, Height, 82.9, kg, 02/09/22 7:58:00 EST, Dry Weight Start Date: 11/02/22 Status: Ordered Paxlovid 150 mg-100 mg oral tablet See Instructions, Paxlovid as mirmatrelvir 150 mg x 2 days with ritonavir 100. All 3 tablets taken together twice daily for 5 days, # 30 tablet, 0 Refills, Maintenance, 11/01/22 19:02:00 EDT, [facility]/pharmacy #[id number], Partial fill upon patient request if t... Start Date: 11/01/22 Status: Ordered ProAir HFA 90 mcg/inh inhalation aerosol with adapter 2, puffs, Inhalation, Every 4 hours, PRN, # 1 each, Refills 1, Tot. Refills 1, Maintenance, 11/01/22 19:03:00 EDT, Aerosol, Route to Pharmacy Electronically, [id number], [facility]/pharmacy #[id number], 158, cm, 10/04/22 9:25:00 [...] Soft Stop, 02/13/22 10:40:00 EST, [facility]/pharmacy #[id number], Partial fill upon patient request if theprescription [...] 11 Refills, Maintenance, 09/08/22 13:03:00 EDT, [id number], Partial fill upon patient request if the [...] of autism (son) Confirmed Active *Debbie Munoz, Fisheries Biologist, [facility] [phone] Confirmed Active GERD (gastroesophageal reflux disease) Confirmed [...] Team Personnel Name: Mary Melvin DO Position: [facility] Resident Member Role: PCP Address: Address: [address] [facility] [place] [address]- Care Team Related Persons Name: FELICIA MOREAU Address: home [address] [place] [address] Name: JENNIE YEE Address: [address] [facility] [place] [address] Name: JON EDMONDS Address: [address] Address: [address] [place] [address] [place]
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
--- OUTSIDE RECORDS SUMMARY | 2023-01-02 05:50 | XMS_ITS | Continuity of Care Document ---
Author Name Unknown Organization [facility] Address [address] [place] [address]- Care Team Providers Care Student Services Counselor Name Role Phone Mary Melvin DO Primary Care Physician [phone] Encounter [facility] Date(s): 10/17/22 - 11/16/22 [facility] [address] [place] [id number] Allergies, Adverse Reactions, Alerts Substance Reaction Severity Status predniSONE facial swelling Active Immunizations Given and Recorded Vaccine Date Status Refusal Reason [id number] 12y+ bivalent booster vax 07/28/22 Given SARS-CoV-2 mRNA ([id number]) vax 08/09/21 Given tetanus/diphtheria/pertussis, acel(Tdap) 06/08/21 Given [...] EDT, Height, 82.9, kg, 02/09/22 7:58:00 Dr. EMAGHAN.. Start Date: 09/08/22 Status: Ordered Aspirin Low Dose 81 mg oral delayed release tablet See Instructions, TAKE 2 TABLETS BY MOUTH EVERY DAY TO HELP DECREASE PRE- ECLAMPSIA, # 30 tablet, 5 Refills, Maintenance, 11/07/22 18:27:00 EDT, [facility] [id number], 158, cm, 11/02/22 18:25:00 EDT, Height, 82.9, kg, 02/09/22 7:58:00 EST, Dry Weight Start Date: 11/07/22 Status: Ordered clotrimazole 1% topical cream See Instructions, Topically 2 times a day to affected area of skin, # 60 Gm, 3 Refills, Maintenance, 11/09/22 14:33:00 EDT, [facility]/pharmacy #[id number], Partial fill upon patient request if the prescription is for a schedule II opioid drug., Topically 2 times... Start Date: 11/09/22 Status: Ordered Commode Commode, See Instructions, # 1 each, Refills 0, Tot. Refills 0, Maintenance, Dx: M54.30 Sciatica duration: detention, 08/14/22 13:56:00 EDT, Supply Start Date: 08/14/22 Status: Ordered gabapentin 100 mg oral capsule 100 mg, 1, capsule, By Mouth, Daily at bedtime, # 30 capsule, Refills 4, Tot. Refills 4, Maintenance, 11/09/22 14:33:00 EDT, Route to Pharmacy Electronically, [facility]/pharmacy #[id number], dose decrease to 100mg qhs 06/20/22, 158, cm, 11/02/22 18:25:00 EDT, [facility]... Start Date: 11/09/22 Status: Ordered hydrocortisone 2.5% topical cream 1 application, Rectally, 2 times a day, PRN hemorrhoids, # 30 Gm, 11 Refills, Maintenance, 09/09/2315:53:00 EDT, Cream, [facility]/pharmacy #[id number], Partial fill upon patient request if the prescription is for a schedule II opioid drug., 1 application Rectall... Start Date: 09/08/22 Status: Ordered Lidoderm 5% film See Instructions, Topically Daily for pain remove patches after 12 hours, # 30 patch, 0 Refills, Maintenance, 11/08/22 16:40:00 EDT, [facility]/pharmacy #[id number], Partial fill upon patient request if the prescription is for a schedule II opioid drug., Topicall... Start Date: 11/08/22 Status: Ordered LSO for lower back pain LSO for lower back pain, See Instructions, # 1 each, Refills 0, Tot. Refills 0, Maintenance, pleasesize pt for LSO for lower back pain Fax to [facility]. [id number], 05/04/21 15:19:00 EST, Compound Start Date: 05/04/21 Status: Ordered meloxicam 15 mg oral tablet See Instructions, 1 tablet daily for 14 days take with food please, # 14 each, 0 Refills, Maintenance, 11/02/22 19:13:00 EDT, [facility]/pharmacy #[id number], 158, cm, 11/02/22 18:25:00 EDT, Height, 82.9, kg, 02/09/22 7:58:00 EST, Dry Weight Start Date: 11/02/22 Status: Ordered Paxlovid 150 mg-100 mg oral tablet See Instructions, Paxlovid as mirmatrelvir 150 mg x 2 days with ritonavir 100. All 3 tablets taken together twice daily for 5 days, # 30 tablet, 0 Refills, Maintenance, 11/01/22 19:02:00 EDT, [facility]/pharmacy #[id number], Partial fill upon patient request if t... Start Date: 11/01/22 Status: Ordered ProAir HFA 90 mcg/inh inhalation aerosol with adapter 2, puffs, Inhalation, Every 4 hours, PRN, # 1 each, Refills 1, Tot. Refills 1, Maintenance, 11/01/22 19:03:00 EDT, Aerosol, Route to Pharmacy Electronically, [id number], [facility]/pharmacy #[id number], 158, cm, 10/04/22 [...] 1 Refills, Soft Stop, 02/13/22 10:40:00 EST, [facility]/pharmacy #[id number], Partial fill upon patient request if theprescription [...] each, 11 Refills, Maintenance, 09/08/22 13:03:00 EDT, [facility]/pharmacy #[id number], Partial fill upon patient request if the [...] of autism (son) Confirmed Active *Debbie Munoz, Inseam Trimming Machine Operator, [employer] [phone] Confirmed Active GERD (gastroesophageal reflux disease) Confirmed [...] Team Personnel Name: Mary Melvin DO Position: [facility] Resident Member Role: PCP Address: Address: [address] [facility] [place] [address]- Care Team Related Persons Name: FELICIA MOREAU Address: home [address] [place] [address] Name: JENNIE YEE Address: home [address] [address] Name: JON EDMONDS Address: [address] Address: [address] [place] [address] [place]
--- OUTSIDE RECORDS SUMMARY | 2023-01-02 05:51 | XMS_ITS | Continuity of Care Document ---
Author Name Unknown Organization [facility] Address [address] [place] [address]- Care Team Providers Care Safety And Security Manager Name Role Phone Mary Melvin DO Primary Care Physician Encounter [facility] Date(s): 07/19/22 - 08/18/22 [facility] [address] [place] [address] Allergies, Adverse Reactions, Alerts Substance Reaction Severity Status predniSONE facial swelling Active Immunizations Given and Recorded Vaccine Date Status Refusal Reason [id number] 12y+ bivalent booster vax 07/28/22 Given SARS-CoV-2 mRNA ([id number]) vax 08/09/21 Given tetanus/diphtheria/pertussis, acel(Tdap) 06/08/21 Given [...] Refills 0, Maintenance, Dx: M54.30 Sciatica duration: chcf, 08/14/22 13:56:00 EDT, Supply Start Date: 08/14/22 Status: Ordered gabapentin 100 mg oral capsule 100 mg, 1, capsule, By Mouth, Daily at bedtime, # 30 capsule, Refills 2, Tot. Refills 2, Maintenance, 06/20/22 9:46:00 EDT, Route to Pharmacy Electronically, [facility]/pharmacy #[id number], dose decrease to 100mg qhs 06/20/22, 158, cm, 06/20/22 9:07:00 EDT, Height... Start Date: 06/20/22 Status: Ordered Lidoderm 5% film See Instructions, Topically Daily for pain remove patches after 12 hours, # 30 patch, 0 Refills, Maintenance, 08/10/22 17:46:00 EDT, [facility]/pharmacy #[id number], Partial fill upon patient request if the prescription is for a schedule II opioid drug., Topicall... Start Date: 08/10/22 Status: Ordered LSO for lower back pain LSO for lower back pain, See Instructions, # 1 each, Refills 0, Tot. Refills 0, Maintenance, pleasesize pt for LSO for lower back pain Fax to [facility]. [id number], 05/04/21 15:19:00 EST, Compound Start Date: 05/04/21 Status: Ordered meloxicam 15 mg oral tablet 1 tablet, By Mouth, Daily, # 30 tablet, 0 Refills, Maintenance, 08/10/22 9:19:00 EDT, [facility] STORE [id number], 158, cm, 08/04/22 14:26:00 EDT, Height, 82.9, kg, 02/09/22 7:58:00 EST, Dry Weight Start Date: 08/10/22 Status: Ordered ProAir HFA 90 mcg/inh inhalation aerosol with adapter 2, puffs, Inhalation, Every 4 hours, PRN, # 1 each, Refills 0, Tot. Refills 0, Maintenance, 03/11/18 16:52:13 EST, Aerosol, Route to Pharmacy Electronically, [id number], [facility]/pharmacy #[id number] Start Date: 03/11/18 Status: Ordered Seroquel [...] 1 Refills, Soft Stop, 02/13/22 10:40:00 EST, [facility]/pharmacy #[id number], Partial fill upon patient request if theprescription [...] of autism (son) Confirmed Active *Debbie Munoz, Print Project Manager, [facility] [phone] Confirmed Active GERD (gastroesophageal reflux disease) Confirmed [...] S Resident Member Role: PCP Address: Address: [address] [place] [address] [place] [address]- [place] Care Team Related Persons Name: LIZZETH FELICIA Address: home [address] [place] [address] Name: JENNIE YEE Address: home [address] [facility] [place] [address] Name: JON EDMONDS Address: [id number] Address: [address] [place] [address] [place]
[2023-01-02] MEDS: methocarbamoL 750 MG TABLET PO (06:10)
[2023-01-02] MEDS: Gabapentin 300 MG CAPSULE PO ×2 (06:10→19:50)
[2023-01-02] MEDS: Lactated Ringers 1,000 ML 100 ML IVCONT (06:29)
[2023-01-02] MEDS: Albuterol Sulfate (0.083%) 2.5 MG/3 ML VIAL.NEB INHALE (06:42)
--- NOTE | 2023-01-02 06:59 | MHC.SHP ---
Pre-Procedural Eval Section A Date of Service: 01/02/23 Section B Chief Complaint: Other spondylosis with radiculopathy, lumbosacral Allergies: Allergies Allergy/AdvReac Type Severity Reaction Status Date / Time cortisone Allergy Intermediate Rash-injectable Verified 12/20/22 12:22 form prednisone Allergy Intermediate Swelling-ey Verified 12/20/22 12:20 es/lips Review of Systems Sugical H&P ROS: Negative: Constitution, Cardiovascular, Respiratory, Neurological, Psychiatric, Hem-Onc, Allergic/Immunologic, Gastrointestinal, Genitourinary, Musculoskeletal, Integumentary, Endocrine and Eyes/Ears/Nose/Throat Exam Surgical H&P Exam: Not Evaluated: HEENT, Not Evaluated: Heart, Not Evaluated: Lungs, Not Evaluated: Extremities, Not Evaluated: Abdomen, Not Evaluated: Skin and Not Evaluated: Neurological Plan Diagnosis/Plan: Unchanged I have reviewed the history and physical and performed a pertinent physical examination on my patient. No changes have occurred unless specified. Plan remains the same, L5-S1 ALIF. Time Spent With Patient Time: Total time managing care of this patient today _10___ minutes.
--- NOTE | 2023-01-02 09:54 | P.OP_ITS ---
Operative Note Operative Note Date of Service: 01/02/23 Narrative: Preoperative Diagnosis: 1.) Lumbar degenerative disc disease L5-S1; lumbar radiculopathy and back pain Procedure: L5-S1 discectomy, arthrodesis and implantation cage through an anterior lumbar approach (ALIF; anterior instrumentation L5-S1; allograft Indication for Surgery Lumbar degenerative disc disease Consent Informed Consent was obtained for this operation. I have explained the nature, purpose and benefits of the operation. I have discussed the risks and benefit of the operation including possible complications or adverse events with patient/family. Alternative(s) were discussed with the patient with their relative benefits and risks as well as the consequences of not accepting the operation were included in obtaining consent. Surgeon: DARIAN WEST MD, PHD Procedure Assisted By: ERIN HYATT MD and SUSIE Mcclendon Description of Procedure This 27-year-old female suffering from back pain, bilateral leg numbness and a footdrop due to severe degenerative disc disease L5-S1. The patient was offered an anterior lumbar interbody fusion with anterior L5-S1 instrumentation. The procedure complications were explained. The patient was consented. The patient was brought to the operating room and endotracheally intubated. The patient was put in a supine position. Prep and drape was done followed by timeout. Dr. Hyatt, co-surgeon, provided the access to the L5-S1 disc space through an anterior approach. He was assisted by physician pharmacy innovation assistant who performed manual retraction. He will dictate the approach in a separate operative note. When the L5-S1 disc space was exposed I took over the procedure. An annulotomy was done followed by a partial discectomy. Sequential trial implants were inserted and advanced towards the posterior wall of the disc space. I completed the discectomy and prepare the endplates. Then a 10 x 24 x 66 and 12 degree lordosis 4 web cage filled with allograft was inserted into the disc space. Anterior instrumentation was added to secure the implant. Two screws with the length 23 mm were inserted into the L5 vertebral body and 1 screw 27 mm long was inserted into the S1 vertebral body. The retractor was removed and hemostasis was done by Dr. Bernardo who closed the incision. The patient was extubated and transported in stable condition to recovery room. This procedure was done with the aid of a physicans pharmacy innovation assistant as a qualified resident was not available. The physician pharmacy innovation assistant was critical for the following aspects of surgery: Manual traction or opening and assisting closure of the incision. Anesthesia: General Estimated Blood Loss (ml): 40 mL Duration of Surgery: To hours Complications: None Postoperative Plan: Admit to inpatient for observation
[2023-01-02] MEDS: oxyCODONE HCl Immed Release 5 MG TABLET 10 MG PO (10:54)
[2023-01-02] MEDS: HYDROmorphone HCl 0.5 MG/0.5 ML SYRINGE 0.25 MG IVPUSH (10:55)
--- NOTE | 2023-01-02 12:59 | PC.NURSE ---
see bladder scan 690ml and see urine output 450 ml following straight cath.
[2023-01-02] MEDS: HYDROmorphone HCl 1 MG/ML SYRINGE IVPUSH (14:09)
[2023-01-02] MEDS: ceFAZolin Sodium/Dextrose,Iso 2 GM/50 ML PIGGYBACK IV ×2 (14:09→19:49)
[2023-01-02] MEDS: 0.9 % Sodium Chloride 1,000 ML 75 ML IVCONT ×2 (14:09→22:42)
[2023-01-02] MEDS: busPIRone HCl 5 MG TABLET 15 MG PO ×2 (14:10→19:51)
[2023-01-02] MEDS: Acetaminophen 1,000 MG/100 ML PIGGYBACK 400 MG IV ×2 (15:36→21:34)
[2023-01-02] MEDS: Ketorolac Tromethamine 15 MG/ML VIAL IVPUSH ×2 (15:44→21:33)
[2023-01-02] MEDS: ondansetron HCL 4 MG/2 ML VIAL IVPUSH (17:47)
[2023-01-02] MEDS: Docusate Sodium 100 MG CAPSULE PO (19:49)
[2023-01-03] MEDS: ceFAZolin Sodium/Dextrose,Iso 2 GM/50 ML PIGGYBACK IV (01:54)
[2023-01-03 02:43] VITALS: BP 99/53; PULSE 75; RESP 16; TEMP 36.1; O2SAT 98
[2023-01-03] MEDS: oxyCODONE HCl Immed Release 5 MG TABLET 10 MG PO (02:51)
[2023-01-03 04:00] VITALS: RESP 18
[2023-01-03] MEDS: Ketorolac Tromethamine 15 MG/ML VIAL IVPUSH ×2 (04:23→10:17)
[2023-01-03] MEDS: Acetaminophen 1,000 MG/100 ML PIGGYBACK 400 MG IV ×2 (04:28→10:16)
[2023-01-03 07:31] VITALS: BP 91/50; PULSE 75; RESP 18; TEMP 36.3; O2SAT 94
[2023-01-03] MEDS: ondansetron HCL 4 MG/2 ML VIAL IVPUSH (08:33)
--- NOTE | 2023-01-03 08:41 | HO.NEURO.PN ---
Neurosurgery Operative Note Date of Service: 01/03/23 Narrative: POD: 1 Procedure: L5-S1 ALIF Patient was seen this morning sitting upright eating breakfast in her room on . She reports she has been up out of bed and is otherwise doing well. She feels some of her her pain has persisted post-operatively, but does have good relief with pain medication. She states her symptoms in her lower extremities are greatly improved and she is happy with the surgery. She is voiding well and tolerating diet. Afebrile, vital signs stable. Full strength 5/5 UE / LE. She has full movement strength in her bilateral feet. Anterior dressing has some staining without signs of hematoma. No active sanguineous drainage. Area is dry. Plan: Patient meets criteria to be medically discharged home. She may continue to have movement restrictions and requested VNA services at home. I will completed [id number]. She was seen at bedside with Dr. Rogers.
--- NOTE | 2023-01-03 08:44 | PM.DS ---
DS: Providers Provider Date of Service: 01/03/23 Date of admission: 01/02/23 09:54 Primary care physician: SUSIE Crockett DS: Summary Time Spent with Patient Time attestation: Total time managing care of this patient today ____ minutes. Discharge coordination time: Less than 30 minutes Quality: Safe Use of Opioids Does Pt have an Active Cancer Diagnosis on the Problem List?: No Quality: Stroke Does the patient have a stroke diagnosis?: No Physical Exam Vital Signs: Vital Signs: Last Vital Signs Temp 97.3 F 01/03/23 07:31 Pulse 75 01/03/23 07:31 Resp 18 01/03/23 07:31 BP 91/50 L 01/03/23 07:31 Pulse Ox 94 01/03/23 07:31 O2 Del Method Room Air 01/03/23 07:31 O2 Flow Rate 2 01/02/23 13:02 BMI result Body Mass Index 35.4 Discharge Plan Discharge Anticipated Discharge Date/Time: 01/03/23 08:45 Patient Disposition: Home, Self-Care Discharge Diagnosis: s/p L5-S1 ALIF Referrals: Jason Templeton PA [Primary Care Provider] - Discharge Medications: New oxycodone 5 mg tablet 5 mg PO Q6H PRN (Reason: severe pain (scale score 7-10)) Qty: 30 0RF Rx Instructions: Partial Fill upon patient request. docusate sodium 100 mg capsule 100 mg PO BID Qty: 20 0RF Continued sumatriptan succinate 25 mg tablet 25 mg PO QD-BID buspirone 15 mg tablet 15 mg PO TID quetiapine 50 mg tablet 50 mg PO BEDTIME gabapentin 100 mg capsule 300 mg PO BEDTIME albuterol sulfate [Ventolin HFA] 90 mcg/actuation HFA aerosol inhaler 2 puff inhalation Q4H PRN (Reason: wheezing) Discontinued oxycodone 10 mg tablet 10 mg PO Q6H PRN (Reason: Severe Pain (Scale Score 7-10)) Discharge Orders: Discharge Order (Routine); Ordered 01/03/23 Ordered By: Brain Fletcher Diet: Advance to usual diet Activity on Discharge: As tolerated Activity Restrictions/Additional Instructions: After your spinal surgery we ask you to observe the following restrictions/guidelines: Activity: With lumbar fusion surgery it is normal to have days in the first couple of weeks where you have increased leg pain. This usually lasts 1-2 days and self resolves with the continuation of medication. Attempt to stay mobile and continue activity as tolerated. It is normal to feel some discomfort as you increase your activity, but that will improve with time. We ask you avoid heavy lifting or activities that cause pain. As a general rule, 8lbs is a safe limit for lifting right after surgery. Walk as much as you feel comfortable but not to exhaustion. You will feel extra tired the first few days after surgery. Stay well hydrated. It is OK to walk up and down stairs You may return to driving when you are off narcotics (such as vicodin, oxycodone, dilaudid, etc), and you are back to normal functional capacity. If you have any concerns please check with office before driving. Return to work is specific to each patient and each surgery, so please speak with your doctor/PA at first follow up. Please bring paperwork such as FMLA at that time if you need it filled out. Medications: It is recommended that you take Tylenol 500 mg every 4 hours for the 1st week postoperatively, alongside ibuprofen 600 mg every 8 hours. We will give you a short supply of narcotics after surgery (usually one weeks worth). Please use this for breakthrough pain that is refractory to the Tylenol ibuprofen and gabapentin. If you need more please call the office but do not use more than prescribed. You will need to give our office 48 hours notice if you need narcotics refilled and we do not fill narcotics on weekends or evenings. If you are on a narcotic, it is a good idea to take a stool softener such as colace or senna to avoid constipation If you take blood thinner such as aspirin, Plavix, Coumadin, Effient, Eliquis etc for conditions such as Afib, DVT, Pulmonary embolus, coronary disease, stents etc please speak with your surgeon about specific details as to when you can resume these medications. You can resume NSAIDs on post op day 1 (eg: Motrin, Naproxen, etc). Follow up: Please call the office, , after surgery to arrange a 3 week follow up for wound check. Wound Care: You may remove your dressing on the first day after surgery. You may leave open to air. Please do not remove the steri strips underneath. they will fall off on their own in one week. IT IS NORMAL FOR THE WOUND TO OOZE OR BE BLOODY FOR A FEW DAYS AFTER SURGERY. IF THIS HAPPENS JUST PLACE NEW DRESSING OVER IT TO AVOID STAINING CLOTHES. You may shower on post op day # 1 We ask that you do not let the water soak the wound. If it does get wet, just towel dry lightly. Please do not scrub your incision or place any type of chemical/ointment on the wound. No tub baths, pools or jacuzzis for one month. If you have any leaking or redness from your wound, or fevers, please call office Care Plan Goals: Return to activity as tolerated. Health Concerns: None. Plan of Treatment: Follow-up in clinic in 2-3 weeks. Assessment: Stable.
--- NOTE | 2023-01-03 09:22 | MHC.CM.PN ---
pt dcd home no skilled service needs
--- NOTE | 2023-01-03 09:39 | W.MHC.F2F ---
Service Date Service Date: 01/03/23 Encounter Date of encounter: 01/03/23 Reasons for Services Signs and symptoms assessed: S/P lumbar spinal surgery L5-S1 ALIF. Reason for mcfp: wound care, postoperative assessment and/or care, medication management and other Reason for physical therapy: home safety and mobility, therapeutic exercises, gait/transfer training, ADL training and energy conservation Homebound: Leaving the home is medically contraindicated at this time without the asist of a device and/or another person due to the listed conditions above and below. Reason homebound: unsteady gait / fall risk, leg weakness, pain with transfers, weakness related to hospital stay and unable to drive Certification: Based on the above findings, I certify that this patient is confined to the home and needs intermittent mcfp care, physical therapy and/or speech therapy, or continues to need occupational therapy. The patient is under my care, and I have initiated the establishment of the plan of care. The patient will be followed by a physician who will periodically review the plan of care. Time Spent With Patient Time: Total time managing care of this patient today _15__ minutes.
--- NOTE | 2023-01-03 09:51 | HO.POSTANES ---
Post Anesthesia Evaluation Post Anesthesia Evaluation Date of Service: 01/03/23 Vital Signs: Vital Signs Temp Pulse Resp BP Pulse Ox O2 Del Method 01/03/23 07:31 97.3 F 75 18 91/50 L 94 Room Air 01/03/23 04:00 18 01/03/23 02:43 97.0 F 75 16 99/53 L 98 Room Air Anesthesia: General Endotracheal-GETA Mental Status: Awake Pain Control: Satisfactory Nausea/Vomiting: None Hydration: Adequate Anesthesia-Related Issues: No Anes. Related Issues
[2023-01-03] MEDS: Docusate Sodium 100 MG CAPSULE PO (10:17)
[2023-01-03] MEDS: busPIRone HCl 5 MG TABLET 15 MG PO (12:21)
--- NOTE | 2023-01-03 13:05 | MHC.CM.PN ---
ordered vna will contact pt once [facility] is located [facility] unable to accept due to ins pt aware that she will get a call back
--- NOTE | 2023-01-03 15:29 | MHC.CM.PN ---
[facility] has acceptd pt will call pt to imform her of same
== END 2023-01-03 13:11 | disposition home or self-care (01) | DRG 460 ==
LOC: HO.SSS 10:58 → HO.SSSA 12:39 → HO.S3 12:51
PROVIDERS: Neurological Surgery; Admitting Provider Physician Assistant; PCP Physician Assistant Medical; Visit Provider Physician Assistant
PROC: 0SG30A0 Fusion of Lumbosacral Joint with Interbody Fusion Device, Anterior Approach, Anterior Column, Open Approach (ICD-10-PCS; principal; 2023-01-02 07:30)
DX: M51.16 Intervertebral disc disorders with radiculopathy, lumbar region (principal); F31.9 Bipolar disorder, unspecified; F41.9 Anxiety disorder, unspecified; Z23 Encounter for immunization; Z79.899 Other long term (current) drug therapy
CPT/HCPCS: 72020; 86850; 86900; 86901; 90686; 93005; 94640; 97161; C1713; J0131; J0690; J1100; J1170; J1885; J2250; J2371; J2405; J3010; L8699

== ENCOUNTER 2023-01-23 14:22 | Outpatient (AMB) | payer OTHER, SELFPAY ==
--- NOTE | 2023-01-23 14:55 | HO.SPINEOV ---
Intake Intake Visit Reasons: 1st post op Intake Note: Ms. Vasquez is here today for her 1st post-op visit. [employer] Required: No Allergies cortisone Allergy (Intermediate, Verified 12/20/22 12:22) Rash-injectable form prednisone Allergy (Intermediate, Verified 12/20/22 12:20) Swelling-eyes/lips Assessment & Plan Assessment & Plan (1) S/P spinal fusion: Code(s): Z98.1 - Arthrodesis status Plan Procedure: L5-S1 CAROL Lim comes in today for her 1st postoperative visit. She reports she is very satisfied with the surgery and feels much better than she did pre-operatively. The pain that she has had for the majority of the last 10 years in her low back has resolved. She states that she is up walking around and completing the majority of her ADLs. She reports that she does still have a right-sided shooting radiculopathy, but feels that is significantly lessened compared to preoperative. She does still report taking some jopz-fnh-hqylugt pain medications but feels that these are sufficient for her at this time. She acquired about going to physical therapy which was not recommended at this time. She was encouraged to continue going for daily walks, completing her ADLs, stretching if she feels this is helpful, and slowly returning to normal activity as tolerated. Mobility is intact. No neurological deficit. Patient is able to ambulate well, rises from a seated position without difficulty. Anterior incision site is closed, well healing, with no signs of drainage. We will follow-up with the patient in 6 weeks for her 2nd postoperative visit. At that time we will get x-rays to review with the patient. Brain Rogers MD,PhD [facility] Orders: Orders XR lumbar spine 4V min Today M47.27 - Other spondylosis with radiculopathy, lumbosacral region, Z98.1 - Arthrodesis status Coding Level of Care Code Global (48912) Diagnoses S/P spinal fusion Z98.1
== END 2023-01-23 15:29 | disposition home or self-care (01) ==
PROVIDERS: PCP Physician Assistant Medical; Visit Provider Physician Assistant
DX: Z98.1 Arthrodesis status (principal)
CPT/HCPCS: 99024

== ENCOUNTER 2023-01-23 14:22 | Outpatient (REF) | payer OTHER, SELFPAY | END 2023-01-23 14:23 | disposition home or self-care (01) | LOC: HO.HOSX 14:22 | PROVIDERS: PCP Physician Assistant Medical; Visit Provider Physician Assistant | DX: Z13.89 Encounter for screening for other disorder (principal) ==

== ENCOUNTER 2023-03-16 10:08 | Outpatient (AMB) | payer OTHER, SELFPAY ==
--- NOTE | 2023-03-16 10:58 | HO.SPINEOV ---
Intake Intake Visit Reasons: 2nd post op with xrays Allergies cortisone Allergy (Intermediate, Verified 12/20/22 12:22) Rash-injectable form prednisone Allergy (Intermediate, Verified 12/20/22 12:20) Swelling-eyes/lips Assessment & Plan Assessment & Plan (1) S/P spinal fusion: Code(s): Z98.1 - Arthrodesis status Plan Procedure: L5-S1 CAROL Lim comes in today for her 2nd postoperative visit. She reports she is very satisfied with the surgery, but has had a complicated postoperative course. She reports that initially she was doing much better and able to ambulate without the assistance of any devices. Unfortunately she had a fall down her staircase 3 weeks ago in her home where she landed on her buttocks and then fell further backwards and hit her mid-spine. She reports that after this fall she regressed, and has had moderate-severe pain diffusely throughout the midline of her spine from the base of her neck to her buttocks. She reports that the worst pain she has is in the center of her buttocks 3-4 inches below the level of her hips. She reports no new radicular symptoms, no new numbness/tingling/weakness, only continued pain on the midline of her spine. She now finds herself needing to ambulate with a cane, and has been placed on a continuous oxycodone prescription by her primary care provider. We reviewed the x-ray imaging of her lumbar spine from today which was generally unremarkable. Stable placement of instrumentation at L5-S1 noted when compared to fluoroscopy. No neurological deficits. Sensation grossly intact. Patient is able to ambulate well with assistance of a cane, rises from a seated position without difficulty and without assistance. Anterior incision site is closed and well healed. Plan: The pain that Zayra is describing sounds most like some kind of possible pelvic fracture or pathology. She will be sent for x-ray of the pelvis today, and I will call her with the results when is read by Radiology. If her x-ray shows no pathology then she likely has a significant sprain or strain of the accessory muscles of the spine / pelvis. This does not sound like a neurogenic issue as she has no new weakness/numbness/tingling or radicular symptoms. Brain Rogers MD,PhD [facility] Orders: Orders XR pelvis 1-2V Today Z98.1 - Arthrodesis status Coding Level of Care Code Global (26735) Diagnoses S/P spinal fusion Z98.1
== END 2023-03-16 10:58 | disposition home or self-care (01) ==
PROVIDERS: PCP Physician Assistant Medical; Visit Provider Physician Assistant
DX: Z98.1 Arthrodesis status (principal)
CPT/HCPCS: 99024

== ENCOUNTER → 2023-03-16 10:08 | Outpatient (BNVA) | payer OTHER, SELFPAY | PROVIDERS: PCP Physician Assistant Medical; Visit Provider Physician Assistant ==

== ENCOUNTER 2023-03-16 10:10 | Outpatient (REF) | payer OTHER, SELFPAY ==
--- NOTE | ~2023-03-16 | XR_ITS ---
EXAMINATION: XR PELVIS CLINICAL INFORMATION: Chest arthrodesis after fall COMPARISON: 01/02/2023 TECHNIQUE: AP view of the pelvis. FINDINGS: Lumbosacral surgical hardware is stable in position on single AP view. Bony pelvis is intact. SI joints within normal limits. Mild bilateral hip joint narrowings, right greater than left. Left hemipelvic surgical clips fecal retention. XR/XR pelvis 1-2V IMPRESSION: Lower lumbar surgical hardware. No acute bony pathology recognized.
--- NOTE | ~2023-03-16 | XR_ITS ---
EXAMINATION: XR LUMBOSACRAL SPINE WITH OBLIQUES CLINICAL INFORMATION: Lumbar spine x-ray on 01/02/2023 COMPARISON: Lumbar spondylosis with radiculopathy TECHNIQUE: AP, and lateral views of the lumbar spine. Lateral view of the lumbosacral junction. FINDINGS: The visualized lumbar vertebrae are intact with normal alignment. Intervertebral disc spaces are normal. L5-S1 spinal fusion with integrated intervertebral fusion device is seen. Lumbar spine alignment is normal and stable in flexion and extension. Surgical clips are seen in medial right upper abdomen. XR/XR lumbar spine 4V min IMPRESSION: 1. Unchanged status post L5-S1 spinal fusion. 2. No fracture or dislocation of lumbar spine is seen. 3. Stable normal alignment of lumbar spine in flexion and extension. 4. Probable status post cholecystectomy.
== END 2023-03-16 10:11 | disposition home or self-care (01) ==
LOC: HO.HOSX 10:10
PROVIDERS: Visit Provider Physician Assistant
DX: M47.27 Other spondylosis with radiculopathy, lumbosacral region (principal); Z98.1 Arthrodesis status
CPT/HCPCS: 72110; 72170